=== PATIENT | female | born 1965 | race Caucasian/White ===

== ENCOUNTER 2019-05-23 12:31 | Observation (INO) | payer MEDICARE ==
[2019-05-23 13:59] LABS: ABS Lymphocytes 1.1 10^3/ul (1.0-4.8); ABS Monocytes 0.4 10^3/ul (0-0.8); ABS Neutrophils 5.4 10^3/ul (1.5-7.7); Eosinophil % 0.5 %; Hematocrit 39 % (35-47); Hemoglobin 13.2 g/dL (12.0-16.0); Lymphocyte % 16.2 %; Mean Corpuscular HGB Conc 34 g/dL (31-36); Mean Corpuscular Hemoglobin 31 pg (27-31); Mean Corpuscular Volume 91 fL (80-97); Mean Platelet Volume 7.4 fL (7.4-10.4); Platelet Count 258 10^3/uL (150-450); Red Blood Count 4.32 10^6 /uL (3.70-4.87); Red Cell Distribution Width 15 % (10-15)
[2019-05-23 14:18] LABS: Albumin 4.2 g/dL (3.2-5.2); Albumin/Globulin Ratio 1.3 (1-3); BUN/Creatinine Ratio 20.8 (8-20); C Reactive Protein 4.74 mg/L (<8.01); Calcium 9.5 mg/dL (8.6-10.3); EGFR African American 101.4 (>60); EGFR Non-African American 83.8 (>60); Globulin 3.2 g/dL (2-4); Potassium 4.1 mmol/L (3.5-5.0); Total Bilirubin 0.5 mg/dL (0.2-1.0); Total Protein 7.4 g/dL (6.4-8.9)
--- NOTE | 2019-05-23 15:41 | ED ---
Lower Extremity - HPI Summary HPI Summary: A 54 y/o female presents to [facility] a chief complaint of cellulitis in both legs. Both of her legs are swollen. The patient notes that she has been failing outpatient abx. She is taking Keflex. She denies fevers, chills, N/V. She reports a Hx of COPD and asthma and denies a Hx of DM. She reports taking Lisinopril and a water pill. She says that she quit smoking in 2012. - History of Current Complaint Chief Complaint: EDExtremityLower Stated Complaint: CELLULITIS IN BOTH LEGS PER PT Time Seen by Provider: 05/23/19 15:20 Hx Obtained From: Patient Mechanism Of Injury: Unknown Onset of Pain: Days, Prior to Arrival Onset/Duration: Weeks Pain Intensity: 7 Pain Scale Used: 0-10 Numeric Timing: Constant Location: Is Diffuse Character Of Pain: Unable To Describe Associated Signs And Symptoms: Positive: Swelling, Redness. Negative: Fever Aggravating Factor(s): Nothing Alleviating Factor(s): Nothing - Allergies/Home Medications Allergies/Adverse Reactions: Allergies Allergy/AdvReac Type Severity Reaction Status Date / Time amoxicillin Allergy Intermediate Rash Verified 05/23/19 19:17 codeine Allergy Intermediate Rash Verified 05/23/19 19:17 cephalexin Allergy Rash Verified 05/23/19 19:17 diphenhydramine Allergy Airway Verified 05/23/19 19:17 Obstruction doxycycline Allergy Rash Verified 05/23/19 19:17 ibuprofen Allergy Rash Verified 05/23/19 19:17 influenza virus vaccine, Allergy Rash Verified 05/23/19 19:17 live atten latex Allergy Rash Verified 05/23/19 19:17 metolazone Allergy Rash Verified 05/23/19 19:17 Penicillins Allergy Rash Verified 05/23/19 19:17 propoxyphene Allergy Airway Verified 05/23/19 19:17 Obstruction spironolactone Allergy Airway Verified 05/23/19 19:17 Obstruction zafirlukast Allergy Airway Verified 05/23/19 19:17 Obstruction Home Medications: Home Medications Furosemide TAB* [Lasix TAB*] 20 mg PO DAILY 05/23/19 [History Confirmed 05/23/19 ] Lisinopril [Lisinopril 2.5 MG-] 2.5 mg PO DAILY 05/23/19 [History Confirmed 07/03] Magnesium Oxide [Magnesium] 500 mg PO BID 05/23/19 [History Confirmed 05/23/19] Omeprazole 40 mg PO DAILY 05/23/19 [History Confirmed 05/23/19] Potassium Chlor TAB* [Klor Con ER TAB*] 20 meq PO BID 05/23/19 [History Confirmed 05/23/19] Roflumilast (NF) [Daliresp (NF)] 500 mcg PO DAILY 05/23/19 [History Confirmed ] Tiotropium [place] [Spiriva Respimat] 2.5 mcg INH DAILY 05/23/19 [History Confirmed 05/23/19] Verapamil SR TAB* [Calan Sr TAB*] 240 mg PO DAILY 05/23/19 [History Confirmed ] predniSONE TAB* [Deltasone 10 MG TAB*] 10 mg PO DAILY 05/23/19 [History Confirmed 05/23/19] PMH/Surg Hx/FS Hx/Imm Hx Endocrine/Hematology History: Denies: Hx Diabetes Cardiovascular History: Comment Only: Other Cardiovascular Problems/Disorders - CARDIAC CATH Respiratory History: Reports: Hx Asthma, Hx Chronic Obstructive Pulmonary Disease (COPD), Other Respiratory Problems/Disorders - PNEUMONIA - Cancer History Hx Chemotherapy: No Hx Radiation Therapy: No - Surgical History Surgery Procedure, Year, and Place: R KNEE, R OVARY Infectious Disease History: Yes Infectious Disease History: Denies: Traveled Outside the [place] in Last 30 Days - Social History Alcohol Use: None Substance Use Type: Reports: None Smoking Status (MU): Former Smoker Review of Systems Negative: Fever, Chills Negative: Vomiting, Nausea Positive: Other - positive: cellulitis both legs All Other Systems Reviewed And Are Negative: Yes Physical Exam - Summary Physical Exam Summary: GENERAL: Patient is a well-developed and nourished F who is lying comfortable in the stretcher. Patient is not in any acute respiratory distress. HEAD AND FACE: Normocephalic EYES: PERRLA, EOMI x 2. EARS: Hearing grossly intact. MOUTH: Oropharynx within normal limits. NECK: Supple, trachea is midline, no adenopathy, no JVD, no carotid bruit. CHEST: Symmetric, no tenderness at palpation LUNGS: Wheezing CVS: Regular rate and rhythm, S1 and S2 present, no murmurs or gallops appreciated. ABDOMEN: Soft, non-tender. Bowel sounds are normal. No abnormal abdominal pulsations. EXTREMITIES: 2+ edema on the right, 3+ edema on the left, red, chronic stasis changes and warm. NEURO: Alert and oriented x 3. No acute neurological deficits. Speech is normal and follows commands. SKIN: Dry and warm Triage Information Reviewed: Yes Vital Signs On Initial Exam: Initial Vitals Temp Pulse Resp BP Pulse Ox 98.7 F 74 18 151/90 93 05/23/19 12:47 05/23/19 12:47 05/23/19 12:47 05/23/19 12:47 05/23/19 12:47 Vital Signs Reviewed: Yes Diagnostics - Vital Signs Vital Signs Temp Pulse Resp BP Pulse Ox 05/23/19 14:54 97.8 F 70 22 162/93 95 05/23/19 12:47 98.7 F 74 18 151/90 93 - Laboratory Lab Results: Lab Results 05/23/19 05/23/19 05/23/19 Range/Units 13:49 13:49 13:49 WBC 7.0 (3.5-10.8) 10^3/uL RBC 4.32 (3.70-4.87) 10^6 /uL Hgb 13.2 (12.0-16.0) g/dL Hct 39 (35-47) % MCV 91 (80-97) fL MCH 31 (27-31) pg MCHC 34 (31-36) g/dL RDW 15 (10-15) % Plt Count 258 (150-450) 10^3/uL MPV 7.4 (7.4-10.4) fL Neut % (Auto) 77.4 % Lymph % (Auto) 16.2 % [place] % (Auto) 5.5 % Eos % (Auto) 0.5 % Baso % (Auto) 0.4 % Absolute Neuts (auto) 5.4 (1.5-7.7) 10^3/ul Absolute Lymphs (auto) 1.1 (1.0-4.8) 10^3/ul Absolute Monos (auto) 0.4 (0-0.8) 10^3/ul Absolute Eos (auto) 0.0 (0-0.6) 10^3/ul Absolute Basos (auto) 0.0 (0-0.2) 10^3/ul Absolute Nucleated RBC 0.0 10^3/ul Nucleated RBC % 0.0 Sodium 137 (135-145) mmol/L Potassium 4.1 (3.5-5.0) mmol/L Chloride 103 (101-111) mmol/L Carbon Dioxide 26 (22-32) mmol/L Anion Gap 8 (2-11) mmol/L BUN 15 (6-24) mg/dL Creatinine 0.72 (0.51-0.95) mg/dL Est GFR ( Amer) 101.4 (>60) Est GFR (Non-Af Amer) 83.8 (>60) BUN/Creatinine Ratio 20.8 H (8-20) Glucose 113 H (70-100) mg/dL Lactic Acid 1.6 (0.5-2.0) mmol/L Calcium 9.5 (8.6-10.3) mg/dL Total Bilirubin 0.50 (0.2-1.0) mg/dL AST 10 L (13-39) U/L ALT 10 (7-52) U/L Alkaline Phosphatase 38 (34-104) U/L C-Reactive Protein 4.74 (<8.01) mg/L Total Protein 7.4 (6.4-8.9) g/dL Albumin 4.2 (3.2-5.2) g/dL Globulin 3.2 (2-4) g/dL Albumin/Globulin Ratio 1.3 (1-3) Result Diagrams: 05/23/19 13:49 05/23/19 13:49 Lab Statement: Any lab studies that have been ordered have been reviewed, and results considered in the medical decision making process. Lower Extremity Course/Dx - Course Course Of Treatment: A 54 y/o female presents to [facility] a chief complaint of cellulitis in both legs. The physical exam revealed 2+ edema on the right, 3 + edema on the left, red, chronic stasis changes and warm. In the ED course the patient was given Duoneb INH and Cleocin IV. Blood work and chemistries obtained and are WNL. Case discussed with Dr. Rodrigues, hospitalist. I discussed results with patient. The patient agrees with this plan - Diagnoses Provider Diagnoses: Cellulitis - Physician Notifications Discussed Care Of Patient With: Hira Rodrigues Time Discussed With Above Provider: 16:14 Instructed by Provider To: Admit As Inpatient Discharge - Sign-Out/Discharge Documenting (check all that apply): Patient Departure - admit Patient Received Moderate/Deep Sedation with Procedure: No - Discharge Plan Condition: Fair Disposition: ADMITTED TO [facility] - Billing Disposition and Condition Condition: FAIR Disposition: Admitted to [facility] - Attestation Statements Document Initiated by Scribe: Yes Documenting Scribe: Cisco Castellon Provider For Whom Scribe is Documenting (Include Credential): Issac Sandra MD Scribe Attestation: Cisco Vitale, scribed for Issac Sandra MD on 05/24/19 at 1200. Scribe Documentation Reviewed: Yes Provider Attestation: The documentation as recorded by the Cisco ferris accurately reflects the service I personally performed and the decisions made by Dwayne lewis MD Status of Scribe Document: Viewed
[2019-05-23] MEDS ORDERED: Albuterol/Ipratropium NEB.SOL* Albuterol 2.5 MG/Ipratropium 0.5 MG 3 ML INH ONE (15:45)
[2019-05-23] MEDS ORDERED: Clindamycin 900 MG IVPREMIX(* 900 MG/50 ML SDV IV ONE (15:45)
[2019-05-23] MEDS ORDERED: Al Hydrox/Mg Hydrox/Simet LIQ* 30 ML UDC PO PRN (18:54)
[2019-05-23] MEDS ORDERED: Furosemide IV* 10 MG/ML VIAL (40 MG) IV ONE (18:54)
[2019-05-23] MEDS ORDERED: Magnesium Hydroxide LIQ* 30 ML UDC PO PRN (18:54)
[2019-05-23] MEDS: Mometasone/Formoter 200/5 MDI INH SCH (19:54)
--- NOTE | 2019-05-23 20:01 | HP ---
ADDENDUM NOW INCLUDED ON THIS REPORT CC: Dr. Chris Briceño; Dr. Gibson * HISTORY AND PHYSICAL: DATE OF ADMISSION: 05/23/19 PRIMARY CARE PROVIDER: Dr. Chris Briceño. CHIEF COMPLAINT: Leg edema and pain. HISTORY OF PRESENT ILLNESS: Saloni Barcenas is a 54-year-old female with history of morbid obesity, BMI of 74.9 and chronic bilateral leg edema as well as chronic diastolic CHF, on Lasix at home, who presented to the hospital, sent from her primary care provider's office due to cellulitis that could not be treated as an outpatient anymore. The patient stated that she had been on Keflex for at least 2 weeks and her legs are not getting any better and she still continues to have pain in them. She stated that she has not been febrile at all. She stated that the erythema is improved, but the leg edema still continues to be a problem. She also has been short of breath and she attributes that to humidity and warmth. PAST MEDICAL HISTORY: 1. Obesity. 2. Obstructive sleep apnea, on CPAP. 3. History of COPD, not on oxygen. 4. History of asthma. 5. History of hypertension. 6. History of chronic diastolic CHF, on furosemide. 7. History of chronic leg edema. 8. History of right knee arthroscopic surgery twice. 9. History of exploratory laparotomy for an ovarian cyst. 10. History of tonsillectomy. 11. Mitral valve is "floppy." I suspect it is mitral valve prolapse, under the care of Dr. Gibson. ALLERGIES: Multiple and include AMOXICILLIN, CODEINE, KEFLEX, BENADRYL, DOXYCYCLINE, IBUPROFEN, INFLUENZA VACCINE, LATEX, METOLAZONE, PENICILLIN. All of the above caused rash apart from BENADRYL caused airway obstruction. Airway obstruction was also a reaction to DARVON, ALDACTONE, and ACCOLATE. FAMILY HISTORY: Reviewed and noncontributory. SOCIAL HISTORY: The patient has history of smoking at least 40 years for 3 packs a day, quit smoking in 2012. She lives with her aunt, Jimena Potts, who is her surrogate. She denies any alcohol or drug use. REVIEW OF SYSTEMS: Please see history of present illness. Positive for bilateral leg edema, redness, and pain. Positive for wheezing and shortness of breath. Negative for chest pain. Negative for fevers. All the remaining 12 systems were reviewed with the patient and were otherwise negative. PHYSICAL EXAMINATION GENERAL: The patient is a very pleasant 54-year-old female, who is in no acute distress. Alert, awake, and oriented x3. VITAL SIGNS: Blood pressure of 146/83, heart rate of 88 and regular, respiratory rate 18, oxygen saturation 95% on room air, temperature 97.8. HEENT: Head: Atraumatic, normocephalic. Eyes: Pupils are equal, reactive to light and accommodation. Oropharynx is clear. Mucosa moist. NECK: Supple. No JVD. No bruits bilaterally. RESPIRATORY: Coarse breath sounds bilaterally with wheezes in bilateral mid lungs. CARDIOVASCULAR: Regular rate and rhythm. No murmur. ABDOMEN: Soft, nontender. Bowel sounds are present in all 4 quadrants. EXTREMITIES: There is bilateral very tense pedal edema +2 over the entire bilateral feet to the ankles through mid thighs. There are venous stasis changes on the bilateral lower extremities with hyperemia. There is no evidence of cellulitis. There is no evidence of open sores or wounds. There is no increased warmth and no streaking to indicate cellulitis. Pulses are poorly palpable due to the extreme edema but present bilaterally, with good capillary refill. NEUROLOGIC: Cranial nerves II through XII grossly intact. Motor strength is 5/ 5 bilaterally. DIAGNOSTIC STUDIES/LAB DATA: Laboratory data showed sodium of 137, potassium 4.1, chloride 103, carbon dioxide 26, BUN 16, creatinine 0.72. Liver function tests unremarkable. Brain natriuretic peptide was 42. C-reactive protein of 4.7. CBC: White blood cell count of 7.0, hemoglobin of 13.2, hematocrit of 39, and platelets of 258. Portable chest x-ray as well as venous Dopplers of bilateral lower extremities are pending at the time of dictation. ASSESSMENT AND PLAN: 1. Leg edema. I believe the patient's pain and erythema is due to extreme edema and not cellulitis. There is no indication of cellulitis on clinical exam. The patient has no leukocytosis and her C-reactive protein is not elevated. At this point, the patient does not need to be treated further with antibiotics. Her edema needs to be treated with Arun bandages on a daily basis and leg elevation. The patient is also going to receive an additional dose of IV Lasix today and tomorrow in an attempt to try to treat the edema with diuresis, although it may be difficult due to the patient's severe venous stasis. I will also await the patient's venous Doppler results, but I would doubt that the patient has deep venous thrombosis since her legs are pretty symmetrical on exam. 2. In regards to the patient's chronic obstructive pulmonary disease, it is in mild exacerbation. The patient is on chronic prednisone, which is going to be continued. I will place the patient on nebulizer treatment on a scheduled basis [id number] during the hospital stay. I do not believe increasing her prednisone at this point would be beneficial in this patient with severe leg edema. 3. Leg pain. I suspect the legs are painful due to dense edema that the patient has. Once again, Arun bandages and diuresis as well as gabapentin will be started. The patient is also going to be continued on Tylenol. 4. Diastolic congestive heart failure. It appears to be in mild exacerbation. The patient is going to be increased on Lasix as mentioned above. 5. For DVT prophylaxis, the patient's risk is high and she is going to be placed on heparin subcutaneously. 6. The patient's code status is full. Her surrogate is her aunt as mentioned above. TIME SPENT: Approximately 55 minutes was spent on admission of this patient, more than half that time was spent [id number] with the patient during the interview and physical exam. ADDENDUM: MEDICATIONS: 1. Celebrex 200 mg b.i.d. 2. Prednisone 10 mg daily. 3. Calan SR 240 mg daily. 4. Daliresp 500 mcg daily. 5. Potassium chloride 20 mEq b.i.d. 6. Furosemide 20 mg daily. 7. Mag-Ox 500 mg b.i.d. 8. Spiriva inhaler 2.5 mcg inhalation daily. 9. Omeprazole 40 mg daily. 10. Lisinopril 2.5 mg daily. 11. Carafate 1 g b.i.d. 12. Combivent Respimat 20/100 one puff every 4 hours p.r.n. 13. Advair Diskus 500/50 one inhalation b.i.d. 14. Flovent Diskus 250 mcg one puff b.i.d. 15. Albuterol nebulizer on a p.r.n. basis. [id number]/[facility] #: [id number] -[id number]/CPS #: [id number] UYEN
[2019-05-23] MEDS: Sucralfate TAB* 1 GM PO SCH (21:57)
[2019-05-23] MEDS: Gabapentin CAP(*) 300 MG PO SCH (21:57)
[2019-05-23] MEDS: Docusate CAP* 100 MG PO SCH (21:57)
[2019-05-23] MEDS: Potassium Chlor TAB* 20 MEQ TAB.ER PO SCH (21:57)
[2019-05-23] MEDS: Heparin VIAL(*) 5000 UNITS/ML VIAL (FIVE THOUSAND) SUBCUT SCH (21:58)
[2019-05-23] MEDS: Acetaminophen TAB* 325 MG PO PRN (23:53)
[2019-05-24] MEDS: Albuterol/Ipratropium NEB.SOL* Albuterol 2.5 MG/Ipratropium 0.5 MG 3 ML INH SCH ×3 (00:08→19:41)
[2019-05-24] MEDS ORDERED: Calamine LOTION* 120 ML TOPICAL PRN (00:15)
[2019-05-24] MEDS: Heparin VIAL(*) 5000 UNITS/ML VIAL (FIVE THOUSAND) SUBCUT SCH ×3 (06:06→21:28)
[2019-05-24] MEDS: Acetaminophen TAB* 325 MG PO PRN ×2 (06:10→14:52)
[2019-05-24] MEDS: Mometasone/Formoter 200/5 MDI INH SCH (07:19)
[2019-05-24] MEDS: SPIRIVA Respimat* (tiotropium) 2.5 mcg/inh Inhaler INH SCH (07:20)
[2019-05-24] MEDS: Sucralfate TAB* 1 GM PO SCH ×2 (07:58→16:23)
[2019-05-24] MEDS ORDERED: celeCOXIB CAP* 200 MG PO SCH (09:00)
[2019-05-24] MEDS ORDERED: Pantoprazole TAB * 40 MG TAB PO SCH (09:00)
[2019-05-24] MEDS ORDERED: Furosemide TAB* 20 MG PO SCH (09:00)
[2019-05-24] MEDS ORDERED: predniSONE TAB* 10 MG PO SCH (09:00)
[2019-05-24] MEDS: Lisinopril TAB* 5 MG PO SCH (09:11)
[2019-05-24] MEDS: Verapamil SR TAB* 240 MG PO SCH (09:12)
[2019-05-24] MEDS: Gabapentin CAP(*) 300 MG PO SCH ×2 (09:14→21:26)
[2019-05-24] MEDS: Docusate CAP* 100 MG PO SCH ×2 (09:14→21:23)
[2019-05-24] MEDS: Furosemide IV* 10 MG/ML VIAL (40 MG) IV SCH ×2 (09:14→12:22)
[2019-05-24] MEDS: Potassium Chlor TAB* 20 MEQ TAB.ER PO SCH ×2 (09:15→21:26)
[2019-05-24] MEDS ORDERED: predniSONE TAB* 20 MG PO ONE (12:43)
--- NOTE | 2019-05-24 12:52 | PN ---
Subjective Date of Service: 05/24/19 Interval History: Pt refused NASRA bandages last night and akse RN to hold Lasix IV today. Still c/ o LE's edema , pruritus and pain. can hardly walk due to the massive dense edema. Had a long d/w pt re: importance of compliance with medications ordered and tx recommended to get her better and to improve her edema. Pt agrees to staying another day and using :Lasix and bandage wraps on LE's Objective Active Medications: Acetaminophen (Tylenol Tab*) 650 mg PO Q4H PRN PRN Reason: PAIN-MILD/TEMP >/= 100.4 Last Admin: 05/24/19 06:10 Dose: 650 mg Al Hydrox/Mg Hydrox/Simethicone (Maalox Plus*) 30 ml PO Q6H PRN PRN Reason: INDIGESTION Albuterol/Ipratropium (Duoneb (Albuterol 2.5 Mg/Ipratropium 0.5 Mg)) 1 neb INH RT.BID [facility] Calamine (Calamine Lotion*) 1 applic TOPICAL Q4H PRN PRN Reason: ITCHING Last Admin: 05/24/19 01:01 Dose: 1 admin Celecoxib (Celebrex Cap*) 200 mg PO BID [facility] Docusate Sodium (Colace Cap*) 100 mg PO BID [facility] Last Admin: 05/24/19 09:14 Dose: Not Given Furosemide (Lasix Tab*) 20 mg PO DAILY [facility] Last Admin: 05/24/19 09:13 Dose: 20 mg Furosemide (Lasix Iv*) 40 mg IV DAILY [facility] Last Admin: 05/24/19 12:22 Dose: 40 mg Gabapentin (Neurontin Cap(*)) 300 mg PO BID [facility] Last Admin: 05/24/19 09:14 Dose: 300 mg Heparin Sodium (Porcine) (Heparin Vial(*)) 5,000 units SUBCUT Q8HR [facility] Last Admin: 05/24/19 06:06 Dose: 5,000 units Lisinopril (Prinivil Tab*) 2.5 mg PO DAILY [facility] Last Admin: 05/24/19 09:11 Dose: 2.5 mg Magnesium Hydroxide (Milk Of Magnesia Liq*) 30 ml PO Q4H PRN PRN Reason: CONSTIPATION Magnesium Oxide (Magox 400 Tab*) 400 mg PO BID [facility] Mometasone Furoate/Formoterol Fumar (Dulera 200/5 Mdi*) 2 puff INH BID [facility] Last Admin: 05/24/19 07:19 Dose: 2 puff Pantoprazole Sodium (Protonix Tab*) 40 mg PO DAILY [facility] Last Admin: 05/24/19 09:13 Dose: 40 mg Potassium Chloride (Klor Con Er Tab*) 20 meq PO BID [facility] Last Admin: 05/24/19 09:15 Dose: 20 meq Prednisone (Deltasone Tab*) 50 mg PO DAILY [facility] Sucralfate (Carafate*) 1 gm PO BID AC [facility] Last Admin: 05/24/19 07:58 Dose: 1 gm Tiotropium [place] (Spiriva Respimat 2.5 Mcg) 2 puff INH DAILY [facility] Last Admin: 05/24/19 07:20 Dose: 2 puff Verapamil HCl (Calan Sr Tab*) 240 mg PO DAILY [facility] Last Admin: 05/24/19 09:12 Dose: 240 mg Vital Signs - 8 hr 05/24/19 05/24/19 05/24/19 07:30 07:50 09:14 Temperature 96.8 F Pulse Rate 76 85 Respiratory 18 22 22 Rate Blood Pressure 133/66 (mmHg) O2 Sat by Pulse 100 95 Oximetry Oxygen Devices in Use Now: None Appearance: 54 yo f in nAD, AAOx3 Eyes: PERRLA Ears/Nose/Mouth/Throat: NL Teeth, Lips, Gums, Mucous Membranes Moist Neck: NL Appearance and Movements; NL JVP, Trachea Midline Respiratory: Symmetrical Chest Expansion and Respiratory Effort, Clear to Auscultation Cardiovascular: NL Sounds; No Murmurs; No JVD, RRR Abdominal: NL Sounds; No Tenderness; No Distention, No Hepatosplenomegaly Extremities: No Clubbing, Cyanosis, - - massive dense b/l LE's edema, skin is hardened and nodular due to venous stasis changes below d/l knees Neurological: Alert and Oriented x 3, NL Muscle Strength and Tone Result Diagrams: 05/23/19 13:49 05/23/19 13:49 Additional Lab and Data: Lab Results 05/23/19 05/23/19 05/23/19 Range/Units 13:49 13:49 13:49 WBC 7.0 (3.5-10.8) 10^3/uL RBC 4.32 (3.70-4.87) 10^6 /uL Hgb 13.2 (12.0-16.0) g/dL Hct 39 (35-47) % MCV 91 (80-97) fL MCH 31 (27-31) pg MCHC 34 (31-36) g/dL RDW 15 (10-15) % Plt Count 258 (150-450) 10^3/uL MPV 7.4 (7.4-10.4) fL Neut % (Auto) 77.4 % Lymph % (Auto) 16.2 % [place] % (Auto) 5.5 % Eos % (Auto) 0.5 % Baso % (Auto) 0.4 % Absolute Neuts (auto) 5.4 (1.5-7.7) 10^3/ul Absolute Lymphs (auto) 1.1 (1.0-4.8) 10^3/ul Absolute Monos (auto) 0.4 (0-0.8) 10^3/ul Absolute Eos (auto) 0.0 (0-0.6) 10^3/ul Absolute Basos (auto) 0.0 (0-0.2) 10^3/ul Absolute Nucleated RBC 0.0 10^3/ul Nucleated RBC % 0.0 Sodium 137 (135-145) mmol/L Potassium 4.1 (3.5-5.0) mmol/L Chloride 103 (101-111) mmol/L Carbon Dioxide 26 (22-32) mmol/L Anion Gap 8 (2-11) mmol/L BUN 15 (6-24) mg/dL Creatinine 0.72 (0.51-0.95) mg/dL Est GFR ( Amer) 101.4 (>60) Est GFR (Non-Af Amer) 83.8 (>60) BUN/Creatinine Ratio 20.8 H (8-20) Glucose 113 H (70-100) mg/dL Lactic Acid 1.6 (0.5-2.0) mmol/L Calcium 9.5 (8.6-10.3) mg/dL Total Bilirubin 0.50 (0.2-1.0) mg/dL AST 10 L (13-39) U/L ALT 10 (7-52) U/L Alkaline Phosphatase 38 (34-104) U/L C-Reactive Protein 4.74 (<8.01) mg/L Total Protein 7.4 (6.4-8.9) g/dL Albumin 4.2 (3.2-5.2) g/dL Globulin 3.2 (2-4) g/dL Albumin/Globulin Ratio 1.3 (1-3) Assess/Plan/Problems-Billing Assessment: 54 yo F with morbid obesity, COPD, asthma and LE's edema presented for questionable leg cellultis and was found to have a large b/l LE's edema and reactive skin changes due to it - Patient Problems (1) Leg edema Comment: b/l , massive, with venous stasis skin changes. pt can hardly walk due to it No marked improvement since admission at least partially due pt's noncompliance with recommendations and treatment. will cont OBV another night and cont Lasix and NASRA wraps that pt agreed to comply with this time. Cont leg elevation cont gabapentin for leg pain (2) COPD (chronic obstructive pulmonary disease) Comment: with mild exacerbation and wheezing will increase prednisone to 50 mg daily and cont duonebs (3) DVT prophylaxis Comment: HSQ Status and Disposition: OBV
[2019-05-24] MEDS: Magnesium Oxide TAB* 400 MG PO SCH ×2 (13:23→21:25)
--- NOTE | 2019-05-24 13:34 | HP ---
HISTORY AND PHYSICAL: ADDENDUM: MEDICATIONS: 1. Celebrex 200 mg b.i.d. 2. Prednisone 10 mg daily. 3. Calan SR 240 mg daily. 4. Daliresp 500 mcg daily. 5. Potassium chloride 20 mEq b.i.d. 6. Furosemide 20 mg daily. 7. Mag-Ox 500 mg b.i.d. 8. Spiriva inhaler 2.5 mcg inhalation daily. 9. Omeprazole 40 mg daily. 10. Lisinopril 2.5 mg daily. 11. Carafate 1 g b.i.d. 12. Combivent Respimat 20/100 one puff every 4 hours p.r.n. 13. Advair Diskus 500/50 one inhalation b.i.d. 14. Flovent Diskus 250 mcg one puff b.i.d. 15. Albuterol nebulizer on a p.r.n. basis. [id number]/[facility] #: [id number] MTDD
[2019-05-24 13:43] LABS: BUN/Creatinine Ratio 20.9 (8-20); Calcium 9.8 mg/dL (8.6-10.3); EGFR African American 82.6 (>60); EGFR Non-African American 68.3 (>60); Potassium 3.9 mmol/L (3.5-5.0)
[2019-05-24] MEDS ORDERED: Furosemide IV* 10 MG/ML 2 ML VIAL (20 MG) IV ONE (16:00)
[2019-05-24] MEDS: FLUTICASONE 250 MCG INH SCH (19:42)
[2019-05-24] MEDS ORDERED: Fluticasone-Salmeterol 500-50* DISKUS INH SCH (21:00)
[2019-05-24] MEDS: Fluticasone-Salmeterol 500-50* DISKUS INH SCH (21:24)
[2019-05-24] MEDS: celeCOXIB CAP* 200 MG PO SCH (21:26)
[2019-05-24] MEDS: RANITIDINE 150 MG PO SCH (21:27)
[2019-05-24] MEDS: Nystatin TOP POWDER* 15 GM BTL TOPICAL SCH (21:27)
[2019-05-25] MEDS: Heparin VIAL(*) 5000 UNITS/ML VIAL (FIVE THOUSAND) SUBCUT SCH (06:16)
[2019-05-25] MEDS: FLUTICASONE 250 MCG INH SCH (07:23)
[2019-05-25] MEDS: Fluticasone-Salmeterol 500-50* DISKUS INH SCH (07:23)
[2019-05-25] MEDS: SPIRIVA Respimat* (tiotropium) 2.5 mcg/inh Inhaler INH SCH (07:24)
[2019-05-25] MEDS: Albuterol/Ipratropium NEB.SOL* Albuterol 2.5 MG/Ipratropium 0.5 MG 3 ML INH SCH (07:26)
[2019-05-25] MEDS: Magnesium Oxide TAB* 400 MG PO SCH (08:20)
[2019-05-25] MEDS: Potassium Chlor TAB* 20 MEQ TAB.ER PO SCH (08:20)
[2019-05-25] MEDS: Lisinopril TAB* 5 MG PO SCH (08:20)
[2019-05-25] MEDS: Verapamil SR TAB* 240 MG PO SCH (08:20)
[2019-05-25] MEDS: Furosemide IV* 10 MG/ML VIAL (40 MG) IV SCH (08:20)
[2019-05-25] MEDS: Docusate CAP* 100 MG PO SCH (08:20)
[2019-05-25] MEDS: celeCOXIB CAP* 200 MG PO SCH (08:21)
[2019-05-25] MEDS: Gabapentin CAP(*) 300 MG PO SCH (08:21)
[2019-05-25] MEDS: RANITIDINE 150 MG PO SCH (08:21)
[2019-05-25] MEDS: Sucralfate TAB* 1 GM PO SCH (08:21)
[2019-05-25] MEDS: Nystatin TOP POWDER* 15 GM BTL TOPICAL SCH (08:32)
[2019-05-25] MEDS ORDERED: predniSONE TAB* 50 MG PO SCH (09:00)
[2019-05-25 11:22] VITALS: BP 143/82
--- NOTE | 2019-05-25 13:20 | DS ---
CC: Dr. Briceño; Dr. Jones * DISCHARGE SUMMARY: DATE OF ADMISSION: 05/23/19 DATE OF DISCHARGE: 05/25/19 PRIMARY CARE PROVIDER: Dr. Briceño. DISPOSITION: Discharged to home. CONDITION AT DISCHARGE: Stable. DISCHARGE DIAGNOSIS: 1. Bilateral leg erythema and edema due to peripheral leg edema and venostasis , bilateral leg edema and not due to cellulitis. 2. Exacerbation of chronic obstructive pulmonary disease. SECONDARY DIAGNOSES: 1. History of chronic obstructive pulmonary disease. 2. History of asthma. 3. History of venostasis. 4. Obesity. 5. Chronic diastolic congestive heart failure, on furosemide. MEDICATIONS AT DISCHARGE: Include: 1. Lasix increased from 20 to 40 mg daily. 2. Gabapentin 300 mg b.i.d., which is a new medication. 3. Prednisone increased from 10 to 50 mg daily for the next 4 days, then go back to 10 mg daily as prescribed previously. The remaining medications are unchanged and include: 1. Calan SR 240 mg daily. 2. Spiriva Respimat 1 inhalation daily. 3. Carafate 1 g b.i.d. 4. Daliresp 500 mcg daily. 5. Potassium chloride 20 mEq b.i.d. 6. Omeprazole 40 mg daily. 7. Mag-Ox 500 mg b.i.d. 8. Lisinopril 2.5 mg b.i.d. 9. DuoNeb on a p.r.n. basis. 10. Advair 500/50 one inhalation b.i.d. 11. Flovent Diskus 1 puff b.i.d. 12. Celebrex 200 mg b.i.d. LABORATORY DATA AND STUDIES PERFORMED DURING THE HOSPITAL STAY: Include on 08/02: sodium 136, potassium 3.9, chloride 99, carbon dioxide 24, BUN 18, creatinine 0.86. Liver function tests were obtained at admission and were unremarkable. C- reactive protein was unremarkable at 4.7 at admission. The patient's venous Doppler study obtained on admission, impression: "No acute findings. No evidence of DVT. Limited evaluation of the distal veins bilaterally secondary to body habitus." Portable chest x-ray obtained at admission, impression: "No accompanying evidence of pneumonia or pulmonary edema. Suggestion of trace pleural effusions." HOSPITALIZATION COURSE: Saloni Barcenas is a 54-year-old morbidly obese female , who presented to the hospital yesterday from his primary care provider's office for "cellulitis." Apparently, the patient has been treated with Keflex for cellulitis for over 2 weeks with no result. When she presented to the ED for evaluation, she was noted to have marked, very tense edema of bilateral lower extremities. She also was wheezing on lung exam. She was diagnosed with severe peripheral edema due to venostasis. She was placed on Arun bandages, wrap daily and Lasix was administered intravenously. By the time of discharge, her edema much improved, erythema resolved. She also was placed on gabapentin for neuropathic pain of the bilateral lower extremities. The patient was diagnosed with COPD exacerbation and treated with increase of her oral prednisone with good results. By the time of discharge, she is ready to go home and respiratory amaro, she feels much better and her legs have decreased in edema. She is going to be discharged to home with recommendation to follow up with primary care provider in approximately a week. She is recommended to continue to Arun bandages, wraps to her bilateral lower extremities on a daily basis. She can take if off at night. I am increasing her Lasix to 40 mg daily. She is to have a basic metabolic panel drawn in approximately 3 to 4 days to follow up her creatinine and potassium. PHYSICAL EXAM AT THE TIME OF DISCHARGE: Blood pressure of 143/82, heart rate of 88 and regular, respiratory rate 20, oxygen saturation 92% on room air, temperature 98.1. General: The patient is a very pleasant 54-year-old female with a BMI of over 70, who is in no acute distress, alert, awake, oriented x3. HEENT: Head: Atraumatic, normocephalic. Eyes: Pupils are equal, reactive to light and accommodation. Oropharynx is clear. Mucosa moist. Neck: Supple. No JVD. No bruits bilaterally. Cardiovascular: Regular rate and rhythm. No murmur. Respiratory: Scant bilateral mid lung wheezes, otherwise clear. Abdomen: Soft, nontender. Bowel sounds are present in all 4 quadrants. Extremities: There is venostasis, brownish discoloration of bilateral distal lower extremities as well as skin hardening and granular appearance of skin, especially on the left leg. The marked, tense bilateral leg edema from the level of the ankle to the level of the knee has much improved from prior. The erythema resolved. There are no open lesions. Please note that this is a short summary of the patient's hospital stay. Please refer to further medical records for details. TIME SPENT: Approximately 32 minutes was spent in preparation of the patient's discharge. [id number]/[facility] #: [id number] MTDD
== END 2019-05-25 12:57 | disposition home or self-care (01) ==
LOC: ED 12:31 → MED 18:54
PROVIDERS: ADMIT Internal Medicine; ATTEND Internal Medicine
DX: I87.8 Other specified disorders of veins (principal); L53.9 Erythematous condition, unspecified; R60.0 Localized edema; J44.1 Chronic obstructive pulmonary disease with (acute) exacerbation; J45.909 Unspecified asthma, uncomplicated; E66.01 Morbid (severe) obesity due to excess calories; I11.0 Hypertensive heart disease with heart failure; I50.32 Chronic diastolic (congestive) heart failure; Z79.899 Other long term (current) drug therapy; G47.30 Sleep apnea, unspecified; Z87.891 Personal history of nicotine dependence; Z88.0 Allergy status to penicillin
CPT/HCPCS: 36415; 71045; 80048; 80053; 83605; 83880; 85025; 86140; 87040; 87077; 87150; 87205; 93970; 94640; 94660; 96365; 96372; 96375; 96376; 99283; A9270-GY; G0378; J1644; J1940; J3535; J7512